=== PATIENT | male | born 1965 | race Two or more races ===

== ENCOUNTER 2016-07-25 15:39 | Emergency (ER) | payer BC ==
--- NOTE | 2016-07-31 21:34 | ER ---
ADMIT: 07/25/2016 RM/LOC: ER [facility] MR#: [id number] [id number] CHARLY SERRATO [facility] [place] [address] Emergency Room Report SEX: M AGE: 51 : 1965 DATE: 07/25/2016 ADDENDUM: This patient comes into the ER because he got spurred by one of his roosters. He states he was letting his chickens out. Some of his roosters started fighting. He tried to separate them and one of them with its spur clawed him in his right hand. He stated it immediately started to swell and bleed, and he is concerned that there is a part of the chicken's nail inside of his hand. X-ray was negative for any foreign bodies. He does have a large hematoma on the dorsal aspect of the right hand. Good range of motion of his digits. He was given his tetanus booster. We will have him use ice to the area. Follow up with his primary as needed. MAVERICK Hogan / Chintan Prescott MD / mabel JOB #: [id number] CC: Chintan Prescott MD, Attending Physician Neetu Roberts MD, Family Physician
== END 2016-07-25 16:48 | disposition home or self-care (01) ==
LOC: ER 15:39
DX: S61.431A Puncture wound without foreign body of right hand, initial encounter (principal); Z23 Encounter for immunization; W61.32XA Struck by chicken, initial encounter; Y92.009 Unspecified place in unspecified non-institutional (private) residence as the place of occurrence of the external cause